=== PATIENT | female | born 1955 | race African-American/Black ===

== ENCOUNTER 2020-05-14 00:55 | Emergency (ER) | payer MEDICARE ==
[2020-05-14] MEDS ORDERED: traMADol HCl 50 MG TAB ONE (04:00)
--- NOTE | 2020-05-14 08:41 | CT ---
PRELIMINARY REPORT/DIRECT RADIOLOGY/EMERGENCY AFTER HOURS PROCEDURE EXAM: CT Head Without Intravenous Contrast. CLINICAL HISTORY: FALL; NO LOC TECHNIQUE: Axial computed tomography images of the head/brain without intravenous contrast. COMPARISON: None provided. FINDINGS: BRAIN: No acute intraparenchymal hemorrhage. No mass lesion. No CT evidence for acute territorial inf arct. No midline shift or extra-axial collection. VENTRICLES: No hydrocephalus. ORBITS: The orbits are unremarkable. SINUSES AND MASTOIDS: The paranasal sinuses and mastoid air cells are clear. SOFT TISSUES: No significant facial or scalp soft tissue swelling evident. No radiopaque foreign body is seen. BONES: No acute skull fracture. IMPRESSION: No acute intracranial abnormality. ELECTRONICALLY SIGNED BY: Antoinette Luu MD May 14, 2020 3:33:50 AM CDT FINAL REPORT CT BRAIN WITHOUT CONTRAST: I agree with the preliminary report provided. No acute intracranial abnormality demonstrated. POS:
--- NOTE | 2020-05-14 08:44 | CT ---
PRELIMINARY REPORT/DIRECT RADIOLOGY/EMERGENCY AFTER HOURS PROCEDURE EXAM: CT Cervical Spine Without Intravenous Contrast. CLINICAL HISTORY: FALL; NO LOC TECHNIQUE: Axial computed tomography images of the cervical spine without intravenous contrast. Sagit pete and coronal reformations performed. COMPARISON: None provided. FINDINGS: BONES: No acute fracture or focal osseous lesion. Bony alignment is anatomic. DISCS / DEGENERATIVE CHANGES: No significant disc or facet degeneration. No significant central canal or neural foraminal stenosis. SOFT TISSUES: Enlargement of the left thyroid lobe with a 2.3 cm hypodensity. Dedicated nonemergent t hyroid ultrasound is recommended for further evaluation. IMPRESSION: No acute cervical spine abnormality. Enlargement of the left thyroid lobe with a 2.3 cm h ypodensity. Dedicated nonemergent thyroid ultrasound is recommended for further evaluation. ELECTRONICALLY SIGNED BY: Antoinette Luu MD May 14, 2020 3:36:31 AM CDT FINAL REPORT CT CERVICAL SPINE WITHOUT CONTRAST: I agree with the preliminary report provided. No definite acute fracture or subluxation is evident. The osseous central canal appears relatively well preserved. Craniocervical junction is normal-appe aring. There is mild multilevel spondylosis. Lung apices demonstrate mild pulmonary parenchymal sca rring. There is a large hypodense lesion within the left thyroid gland measuring approximately 3.8 x 2.9 cm. Followup thyroid ultrasound is recommended as indicated in the preliminary report. POS: JESUSITA
--- NOTE | 2020-05-14 08:46 | CT ---
PRELIMINARY REPORT/DIRECT RADIOLOGY/EMERGENCY AFTER HOURS PROCEDURE EXAM: CT left Knee without IV contrast CLINICAL HISTORY: FALL; PAIN TO LEFT KNEE TECHNIQUE: Axial images were acquired through the left knee without IV contrast. Reformatted images w ere reviewed. COMPARISON: None provided. FINDINGS: BONES: No acute fracture or focal osseous lesion. JOINTS: No dislocation. Degenerative changes of the knee with joint space narrowing and subchondral sclerosis and cystic formation. SOFT TISSUES: Increased soft tissue infiltration anterior to the patella. IMPRESSION: No acute fracture. Degenerative changes of the knee. Increased soft tissue infiltration anterior to the patella. ELECTRONICALLY SIGNED BY: Antoinette Luu MD May 14, 2020 3:43:11 AM CDT FINAL REPORT CT LOWER EXTREMITIES: I agree with the preliminary report provided. No definite acute fracture is evident. There is soft tissue swelling overlying the patella possibly related to a small contusion. No large joint capsular distention is evident. There is diffuse osteo penia. POS: BH
--- NOTE | 2020-05-14 08:54 | CT ---
PRELIMINARY REPORT/DIRECT RADIOLOGY/EMERGENCY AFTER HOURS PROCEDURE EXAM: CT Pelvis Without Intravenous Contrast. CLINICAL HISTORY: FALL; NO LOC TECHNIQUE: Axial computed tomography images of the pelvis without intravenous contrast. CONTRAST: None. COMPARISON: None provided. FINDINGS: HIP JOINTS: Status post left hip replacement. BONES: Facet arthropathy of the lower lumbar spine. Focal sclerosis of the left pubic symphysis. SOFT TISSUES: Calcifications of the aorta. Radiopaque fragment at the superior to the left and in the left lateral and may represent shrapnel. IMPRESSION: Status post left hip replacement. No acute fracture. Sclerosis of the left pubic symphysis is nonspecific. Correlation with clinical history is recommende d and bone scan may be obtained for further evaluation. ELECTRONICALLY SIGNED BY: Antoinette Luu MD May 14, 2020 3:40:58 AM CDT FINAL REPORT CT PELVIS WITHOUT CONTRAST: I agree with the preliminary report provided. No definite acute fracture is evident. There is a left hip prosthesis in place that appears similar to the comparison dated 08/16/2013. There is slight increased sclerosis involving the left pubic body that has developed in the interim without appreciable expansion of the bone. There is no appreciabl e cortical thickening or osteolysis. No periosteal reaction is evident. There are degenerative mcnulty ges at the symphysis pubis. There is moderate degenerative change involving both SI joints. There i s moderate to severe spondylosis at L4-5 and L5-S1. There are scattered vascular calcifications. Vi sualized intrapelvic contents reveal no definite acute abnormality. There is a retained metallic bul let fragment within the left lateral abdominal wall with radiopaque fragment seen along the left ileu m. IMPRESSION: 1. I agree with the preliminary report provided. No acute fracture is evident. 2. Some prominent sclerosis involving the left pubic body without associated soft tissue mass. Find ings can be reactive in nature related to degenerative changes of the symphysis pubis due to asymmetr ic loading of the pubic body; however, a localized osteoblastic metastatic lesion cannot be entirely excluded. If the patient has a primary history of malignancy, further evaluation with a bone scan ma y be helpful. Smaller area of subchondral sub-end plate sclerosis is seen involving the right aspect of L5 which is likely related to end plate degenerative change. Again, this may reflect a similar p rocess to what is occurring within the left pubic body. POS: BH
== END 2020-05-14 04:13 | disposition home or self-care (01) ==
LOC: NAV ERS 00:55
DX: S13.9XXA Sprain of joints and ligaments of unspecified parts of neck, initial encounter (principal); S70.02XA Contusion of left hip, initial encounter; S80.02XA Contusion of left knee, initial encounter; M25.512 Pain in left shoulder; E11.9 Type 2 diabetes mellitus without complications; I10 Essential (primary) hypertension; E78.5 Hyperlipidemia, unspecified; E78.00 Pure hypercholesterolemia, unspecified; F17.210 Nicotine dependence, cigarettes, uncomplicated; Z79.4 Long term (current) use of insulin; W19.XXXA Unspecified fall, initial encounter; Y92.59 Other trade areas as the place of occurrence of the external cause
CPT/HCPCS: 70450; 72125; 72192

== ENCOUNTER 2021-03-02 10:50 | Emergency (ER) | payer MEDICARE | END 2021-03-02 11:20 | disposition home or self-care (01) | LOC: NAV ERS 10:50 | DX: J20.9 Acute bronchitis, unspecified (principal); R59.0 Localized enlarged lymph nodes; E11.9 Type 2 diabetes mellitus without complications; Z79.4 Long term (current) use of insulin; E78.5 Hyperlipidemia, unspecified; E78.00 Pure hypercholesterolemia, unspecified; I10 Essential (primary) hypertension; F17.210 Nicotine dependence, cigarettes, uncomplicated | CPT/HCPCS: 99283 ==

== ENCOUNTER 2025-08-07 09:38 | Emergency (ER) | payer MEDICARE | END 2025-08-07 10:50 | disposition home or self-care (01) | LOC: NAV ERS 09:38 | DX: B86 Scabies (principal); I10 Essential (primary) hypertension; E11.9 Type 2 diabetes mellitus without complications; Z79.84 Long term (current) use of oral hypoglycemic drugs; Z79.899 Other long term (current) drug therapy | CPT/HCPCS: 99282 ==